=== PATIENT | male | born 1975 | race Caucasian/White ===

== ENCOUNTER 2016-12-21 21:02 | Emergency (ER) | payer SELFPAY ==
--- NOTE | ~2016-12-21 | CR229 ---
[facility]. [facility] A Service of [facility] RADIOLOGY TEXT RESULTS PATIENT: CHIQUIS KING LOCATION: SED : 71 UNIT #: [id number] AGE: [address]: Osvaldo Hudson MD SEX: M ORDER DR: [id number] [place] [id number] E MR#: [id number] Acc #: [id number] NAME: CHIQUIS KING : 1975 SEX: M STUDY DATE/TIME: 12/21/2016 21:20 UNIT: SED ROOM: STUDY DESCRIPTION: CR Shoulder Min 2 View Lt Attending Physician: Osvaldo Hudson M.D. Ordering Physician: Osvaldo Hudson M.D. MEDICAL IMAGING REPORT This report is preliminary unless electronic signature is present. EXAM Left shoulder HISTORY 41-year-old male, pain, decreased range of motion. Injured shoulder wrestling with brother. FINDINGS Routine views of the left shoulder demonstrates no fracture, dislocation, arthritic or inflammatory change. Soft tissues of left thorax appear normal. IMPRESSION Normal left shoulder. Dictated by... Sam Collins M.D. THIS IS AN ELECTRONICALLY VERIFIED REPORT Sam Collins M.D. at 12/22/2016 5:04 PM David TD: 12/22/2016 08:34 JOB #: [id number] MEDICAL IMAGING REPORT
--- NOTE | ~2016-12-21 | EKG ---
PATIENT: CHIQUIS KING UNIT #: [id number] Ventricular Rate: 106 BPM Atrial Rate: 106 BPM P-R Interval: 150 ms QRS Duration: 78 ms Q-T Interval: 344 ms QTC Calculation(Bezet): 456 ms P [place]: 67 degrees Calculated R [place]: 52 degrees Calculated T [place]: 70 degrees Diagnosis Line: Sinus tachycardia Diagnosis Line: Otherwise normal ECG Diagnosis Line: No previous ECGs available Diagnosis Line: Confirmed by YAYA LEDEZMA MD ([id number]) on 12/22/2016 Diagnosis Line: 6:03:35 PM INTERPRETING MD: DARIEN CLARK
--- NOTE | ~2016-12-21 | CR72 ---
[facility]. [facility] A Service of [facility] RADIOLOGY TEXT RESULTS PATIENT: CHIQUIS KING LOCATION: SED : [birth year] UNIT #: [id number] AGE: [address]: Osvaldo Hudson MD SEX: M ORDER DR: [id number] [place] [id number] E MR#: [id number] Acc #: [id number] NAME: CHIQUIS KING : 1975 SEX: M STUDY DATE/TIME: 12/21/2016 20:48 UNIT: SED ROOM: STUDY DESCRIPTION: CR Chest Single View Portable Attending Physician: Osvaldo Hudson M.D. Ordering Physician: Osvaldo Hudson M.D. MEDICAL IMAGING REPORT This report is preliminary unless electronic signature is present. EXAM Portable chest. HISTORY Left sided chest pain. COMPARISON 07/04/2013 FINDINGS A single AP portable view of the chest shows both lungs to be clear. The heart is normal in size. The mediastinal contour is normal. No significant bone abnormalities are seen. IMPRESSION Normal portable chest. Dictated by... Sam Collins M.D. THIS IS AN ELECTRONICALLY VERIFIED REPORT Sam Collins M.D. at 12/22/2016 5:04 PM Mario TD: 12/22/2016 08:23 JOB #: [id number] MEDICAL IMAGING REPORT
[2016-12-21 21:02] LABS: POC - CKMB <1.0 ng/mL (0.0-7.9); POC - MYOGLOBIN 93.8 ng/mL (0.0-169.0); POC - TROPONIN <0.05 ng/mL (<=0.05)
[2016-12-21 21:09] LABS: BASOPHIL# 0.1 X10e3 (0-0.3); BASOPHIL% 0.7 % (0-2.5); EOSINOPHIL# 0.5 X10e3 (0-0.7); EOSINOPHIL% 5.4 % (0.0-7.0); HEMATOCRIT 49.7 % (38.0-50.0); HEMOGLOBIN 16.9 gm/dL (13.0-16.0); LYMPHOCYTE# 3.8 X10e3 (1.0-3.5); LYMPHOCYTE% 45.6 % (17.0-45.0); MEAN CELL VOLUME 95.9 FL (83-96); MEAN CORPUSCULAR HEMOGLOBIN 32.5 PG (28-34); MEAN CORPUSCULAR HGB CONC 33.9 g/dL (30-36); MONOCYTE% 11.7 % (3.0-12.0); NEUTROPHIL# 3.1 X10e3 (1.5-7.1); NEUTROPHIL% 36.6 % (40-75); PLATELET COUNT 309 X10e3 (140-420); RED BLOOD COUNT 5.18 X10e (3.90-5.60); RED CELL DISTRIBUTION WIDTH 13.1 % (11.0-15.5); WHITE BLOOD COUNT 8.4 X10e3 (4.0-10.5)
[2016-12-21 21:10] LABS: DIFF IND NO
[2016-12-21 21:13] LABS: PROTHROMBIN TIME (PATIENT) 11.1 SECONDS (9.5-12.4)
[2016-12-21 21:20] LABS: PARTIAL THROMBOPLASTIN TIME 28.5 SECONDS (25.6-38.1)
[2016-12-21 21:21] LABS: ALBUMIN SERUM 4.5 g/dL (3.5-5.0); ALKALINE PHOSPHATASE 64 U/L (32-92); ALT (SGPT) 43 U/L (10-40); AST (SGOT) 42 U/L (10-42); BILIRUBIN,TOTAL 0.3 mg/dL (0.2-2.0); BLOOD UREA NITROGEN 9 mg/dL (9-23); CALCIUM SERUM 9.4 mg/dL (8.4-10.2); CARBON DIOXIDE 28 mmol/L (22-31); CHLORIDE 99 mmol/L (100-111); GLOM FILT RATE Estimated ABOVE60 mL/min (>60); GLUCOSE FASTING 140 mg/dL (70-110); POTASSIUM 3.5 mmol/L (3.5-5.1); PROTEIN TOTAL SERUM 8.4 g/dL (6.0-8.3); SODIUM 137 mmol/L (135-145)
[2016-12-21 21:23] LABS: BILIRUBIN, DIRECT <0.1 mg/dL (0.0-0.2); BILIRUBIN,INDIRECT 0.2 mg/dL (0.0-0.9)
== END 2016-12-21 22:57 | disposition home or self-care (01) ==
LOC: SED 21:02
PROVIDERS: Emergency Medicine
DX: S43.402A Unspecified sprain of left shoulder joint, initial encounter (principal); R07.89 Other chest pain; E11.9 Type 2 diabetes mellitus without complications; F17.210 Nicotine dependence, cigarettes, uncomplicated; Y93.72 Activity, wrestling
CPT/HCPCS: 36415; 71010; 73030; 80048; 80076; 82553; 83874; 84484; 85025; 85379; 85610; 85730; 93005; 96374; 99284; J1885